=== PATIENT | male | born 1985 | race Asian ===

== ENCOUNTER 2018-07-30 20:02 | Emergency (ER) | payer MEDICAID ==
[~2018-07-30] VITALS: Ht 165.1 cm; Wt 88.0 kg
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
[2018-07-30 20:22] VITALS: BP 199/107
[2018-07-30] MEDS ORDERED: NORVASC2.5 MG ORAL (20:22)
[2018-07-30] MEDS ORDERED: LORazepam 0.5mg tab ORAL ONE (20:30)
[2018-07-30 20:36] VITALS: BP 178/92
[2018-07-30 20:45] VITALS: BP 178/92
== END 2018-07-30 20:45 | disposition home or self-care (01) ==
LOC: EDBD 20:02 → EMR 20:33
DX: S09.90XA Unspecified injury of head, initial encounter (principal); Y04.2XXA Assault by strike against or bumped into by another person, initial encounter; Y92.89 Other specified places as the place of occurrence of the external cause; I10 Essential (primary) hypertension
CPT/HCPCS: 99282